=== PATIENT | male | born 1965 | race Two or more races ===

== ENCOUNTER → 2024-06-05 | Outpatient (CLI) | payer BC, SELFPAY ==
[2024-06-05 09:53] LABS: Alanine Aminotransferase 37 U/L (10-49); Albumin/Globulin Ratio 2.1 (1.2-2.2); Alkaline Phosphatase 68 U/L (46-116); Amylase 55 U/L (30-118); Anion Gap 8 (7-16); Aspartate Amino Transferase 27 U/L (0-34); BUN/Creatinine Ratio 20 Ratio (12-20); Bilirubin,Total 0.4 mg/dL (0.3-1.2); Blood Urea Nitrogen 16 mg/dL (9-23); Calcium 9.7 mg/dL (8.3-10.6); Calcium (Corrected) 9.7 mg/dL (8.5-10.1); Carbon Dioxide 30.1 mMol/L (20.0-31.0); Chloride 102 mMol/L (98-107); Creatinine (Component) 0.8 mg/dL (0.6-1.3); Globulin 2.4 gm/dL (2.3-3.5); Glucose 119 mg/dL (74-106); Lipase 47 U/L (12-53); Osmolality,Calculated 281 (275-295); Potassium 4.2 mMol/L (3.4-5.1); Sodium 140 mMol/L (136-145); Total Protein 7.4 gm/dL (5.7-8.2); eGFR > 60 See Note
[2024-06-05 09:54] LABS: Basophils % (Auto) 1 % (0-2.5); Eosinophils # (Auto) 0.3 Thou/mm3 (0.0-0.5); Eosinophils % (Auto) 4 % (0-10); Hematocrit 43.7 % (41.0-53.0); Hemoglobin 14.5 g/dL (13.5-16.0); Immature Granulocytes % (Auto) 0 % (0-0); Immature Granulocytes Auto 0.01 Thou/mm3 (0.00-0.00); Lymphocytes # (Auto) 2.6 Thou/mm3 (1.0-4.8); Lymphocytes % (Auto) 35 % (10-50); Mean Corpuscular HGB Conc 33.2 g/dl (31.0-37.0); Mean Corpuscular Hemoglobin 28.9 pg (25.0-35.0); Mean Corpuscular Volume 87 fL (80-100); Monocytes # (Auto) 0.5 Thou/mm3 (0.0-0.8); Monocytes % (Auto) 7 % (0-12); Neutrophils % (Auto) 54 % (37-80); Nucleated Red Blood Cell % 0 /100 WBC (0); Platelet Count 252 Thou/mm3 (140-440); RDW Standard Deviation 41.2 fL (35.1-43.9); Red Blood Count 5.01 Miln/mm3 (4.50-5.90); White Blood Count 7.5 Thou/mm3 (3.8-10.6)
== END | disposition home or self-care (01) ==
LOC: COPL 08:06
PROVIDERS: PCP Family Medicine; Referring Provider Nurse Practitioner Family; Visit Provider Nurse Practitioner Family
DX: R14.0 Abdominal distension (gaseous) (principal); K29.70 Gastritis, unspecified, without bleeding
CPT/HCPCS: 36415; 80053; 82150; 83690; 85025

== ENCOUNTER → 2024-06-12 | Outpatient (CLI) | payer BC, SELFPAY ==
--- NOTE | 2024-06-12 10:58 | XR_ITS ---
Examination: Abdomen sonogram, complete Date and time of exam: June 12, 2024 1102 hours INDICATIONS: Abdominal distention and bloating beginning 2 years ago. Technique: Multiple real-time grayscale transabdominal sonographic images of the abdomen have been obtained. Findings: Negative for gallstones Gallbladder wall 0.40 cm no edema Common bile duct 0.3 cm Pancreatic head 2.8 cm Aorta not enlarged Liver 17.9 cm fatty infiltration no focal liver lesions Normal hepatopedal portal venous flow Patent IVC Right kidney 10.7 x 6.1 x 5.8 cm cortex 1.5 cm Left kidney 11.3 x 5.2 x 4.8 cm cortex 2.3 cm Moderate bilateral renal parenchymal scar formation No hydronephrosis Spleen 11.1 cm IMPRESSION: Negative for gallstones Bladder wall is borderline thickened at 0.40 cm, clinical correlation advised Consider HIDA scan follow-up
== END | disposition home or self-care (01) ==
PROVIDERS: PCP Nurse Practitioner Family; Referring Provider Nurse Practitioner Family; Visit Provider Nurse Practitioner Family
DX: R14.0 Abdominal distension (gaseous) (principal)
CPT/HCPCS: 76700

== ENCOUNTER 2024-06-25 08:00 | Day surgery (SDC) | payer BC, SELFPAY ==
[2024-06-24 14:24] VITALS: BMI 32.6
[2024-06-25] VITALS (14 sets, daily range): BP systolic 121–169; BP diastolic 74–111; PULSE 60–77; RESP 12–18; TEMP 36.2–36.6; O2SAT 95–100; BMI 31.7
--- NOTE | 2024-06-25 10:29 | SUR.OPER ---
Case further delayed due to Physician reporting system issues and dictation of previous case delayed. Patient made aware.
[2024-06-25] MEDS: fentaNYL CIT INJ 50 mCg/ML AMP 2ML (ASD USE ONLY) IV (10:32)
[2024-06-25] MEDS: MIDAZOLAM INJ 1 MG/ML VIAL 2 ML (ASD USE ONLY) 2 MG IV (10:32)
[2024-06-25] MEDS: DiphenhydrAMINE INJ 50 MG/ML VIAL 25 MG IV (10:32)
[2024-06-25] MEDS: MEPERIDINE INJ 25 MG/ML VIAL (ASD USE ONLY) IV (10:40)
--- NOTE | 2024-06-25 12:16 | SUR.PHASEII ---
1120 Pt more awake and alert. Pt speaks K[place] and [place]. C/O crampy. Abd large round, slightly firm upon palp. Pt states size is normal. BS X 4. Pt repositioned for comfort. Encour to pass flatus. 1155 Pt assessment unchanged. Abd remains round, slightly firm. Amb with steady gait. Able to dress self. Pt and given dc instructions via field support rep Dennise. Aware of new prescriptions phoned into [facility] by Dr Antonio. Both state understanding. Pt meets dc criteria-to home.
== END 2024-06-25 11:55 | disposition home or self-care (01) ==
PROVIDERS: PCP Nurse Practitioner Family; Referring Provider Specialist; Visit Provider Specialist
PROC: 0DBE8ZX Excision of Large Intestine, Via Natural or Artificial Opening Endoscopic, Diagnostic (ICD-10-PCS; CPT 45380; principal; 2024-06-25 12:15)
PROC: (CPT 43239; 2024-06-25 12:15)
DX: K64.9 Unspecified hemorrhoids (principal); K57.30 Diverticulosis of large intestine without perforation or abscess without bleeding
CPT/HCPCS: 45378; A4649; J1200; J2175; J2250; J3010